=== PATIENT | female | born 1995 | race Two or more races ===

== ENCOUNTER 2024-09-05 02:59 | Inpatient (IN) | payer OTHER ==
[~2024-09-05] VITALS: Ht 170.2 cm; Wt 59.0 kg
[2024-09-05] MEDS ORDERED: INDOMETHACIN 50 MG CAPSULE PO STA (03:05)
[2024-09-05] MEDS ORDERED: RINGERS SOLUTION,LACTATED 1,000 ML IV SCH (03:15)
[2024-09-05 03:30] VITALS: BP 113/73
[2024-09-05] MEDS ORDERED: TERBUTALINE SULFATE 1 MG/ML AMPUL SUBCUTANEO SCH (04:00)
[2024-09-05] MEDS ORDERED: PROMETHAZINE HCL 50 MG/ML AMPUL IM STA (04:06)
[2024-09-05 04:33] LABS: BASO % 0.2 % (0.1-1.2); EOS # 0.00 (0.04-0.54); EOS % 0.0 % (0.7-7.0); LYMPH # 0.49 (1.18-3.74); LYMPH % 2.8 % (19.3-53.1); MEAN PLATELET VOLUME 10.50 fl (9.4-12.4); MONO # 1.04 (0.24-0.82); MONO % 6.0 % (4.7-12.5); NEUT # 15.66 (1.56-6.13); NEUT % 90.3 % (34.0-71.1); RED CELL DISTRIBUTION WIDTH 13.6 % (11.6-14.4)
[2024-09-05 04:42] LABS: URINE APPEARANCE Clear; URINE BILIRRUBIN Small (NEGATIVE); URINE BLOOD Negative; URINE COLOR Dark Yellow; URINE KETONE 15 (NEGATIVE); URINE LEUKOCYTE Trace; URINE NITRATE Negative; URINE PROTEIN Trace (NEGATIVE); URINE UROBILINOGEN 1.0 E.U./dl
[2024-09-05 04:46] LABS: URINE BACTERIA 21.5 uL (0.0-1933); URINE EPITHELIAL CELLS 7.6 uL (0.0-38.8); URINE WBC 3.8 uL (0.0-23.2)
[2024-09-05 04:48] LABS: URINE CAST 0.00 uL (0.0-1.40); URINE GLUCOSE >=1000 MG/DL (NEGATIVE); URINE RBC 0.2 uL (0.0-20.8)
[2024-09-05 04:52] LABS: INR 0.99
[2024-09-05 04:56] LABS: ALT/SGPT 92.0 U/L (12-78); AST/SGOT 32.0 U/L (15-37); BILIRUBIN TOTAL 0.27 mg/dL (0.3-1.2); BUN CREA RATIO 15.0 (7.0-25.0); CREATININE SERUM 0.6 mg/dL (0.55-1.02); GFR 120.84; GLOBULINA 3.4 G/DL (2.4-3.5); GLUCOSE FASTING 141.0 mg/dL (65-100); OSMOLALITY SERUM 277.0 MOSM/KG (275-295)
[2024-09-05] MEDS ORDERED: NIFEDIPINE 30 MG TAB.SA.OSM PO SCH (05:00)
[2024-09-05] MEDS ORDERED: INDOMETHACIN 50 MG CAPSULE PO PRN ×2 (05:00)
[2024-09-05] MEDS ORDERED: CEFAZOLIN SODIUM 1,000 MG VIAL IV STA (05:20)
[2024-09-05] MEDS ORDERED: PRENATA CHEWAB1 EACH PO (05:24)
[2024-09-05] MEDS ORDERED: FOLIC ACID0.8 M1 PO (05:26)
[2024-09-05] MEDS ORDERED: VIT C-ECHINACE1 EACH PO (05:26)
[2024-09-05] MEDS ORDERED: CHILDREN'S ASPI81 MG PO (05:26)
[2024-09-05] MEDS ORDERED: LOVENOX40 MG/0.4 (05:29)
[2024-09-05] MEDS ORDERED: TERBUTALINE SU2.5 MG PO (05:30)
[2024-09-05] MEDS ORDERED: NIFEDIPINE20 MG PO (05:31)
[2024-09-05] MEDS ORDERED: PROMETHAZINE HCL 50 MG/ML AMPUL IM SCH ×2 (06:00→08:00)
[2024-09-05 06:13] VITALS: BP 115/73; O2SAT 99
[2024-09-05 07:30] LABS: COVID-19 AG NEGATIVE (NEGATIVE)
[2024-09-05] MEDS ORDERED: PROMETHAZINE HCL 50 MG/ML AMPUL IV SCH (08:00)
[2024-09-05] MEDS ORDERED: PROMETHAZINE HCL 50 MG/ML AMPUL IM ONE (11:56)
[2024-09-05] MEDS ORDERED: ENOXAPARIN SODIUM 40 MG/0.4 ML SYRINGE SUBCUTANEO SCH (12:00)
[2024-09-05] MEDS ORDERED: CEFAZOLIN SODIUM 1,000 MG VIAL IV SCH (12:00)
[2024-09-05] MEDS ORDERED: PNV,CALCIUM 72/IRON/FOLIC ACID 1 TAB TABLET PO ONE (12:19)
[2024-09-05] MEDS ORDERED: ENOXAPARIN SODIUM 40 MG/0.4 ML SYRINGE SUBCUTANEO ONE (12:20)
[2024-09-05 12:25] VITALS: BP 94/56
[2024-09-05] MEDS ORDERED: PNV,CALCIUM 72/IRON/FOLIC ACID 1 TAB TABLET PO NR (12:30)
[2024-09-05 15:08] VITALS: BP 90/55
[2024-09-05 19:23] VITALS: BP 102/66
[2024-09-05] MEDS ORDERED: BETAMETHASONE ACETATE,SOD PHOS 30 MG/5 ML ML IM ONE (20:00)
[2024-09-05 23:20] VITALS: BP 100/66
[2024-09-06 03:26] VITALS: BP 89/53
[2024-09-06 06:17] LABS: BASO % 0.1 % (0.1-1.2); EOS # 0.00 (0.04-0.54); EOS % 0.0 % (0.7-7.0); LYMPH # 0.62 (1.18-3.74); LYMPH % 7.5 % (19.3-53.1); MEAN PLATELET VOLUME 10.20 fl (9.4-12.4); MONO # 0.09 (0.24-0.82); MONO % 1.1 % (4.7-12.5); NEUT # 7.52 (1.56-6.13); NEUT % 90.9 % (34.0-71.1); RED CELL DISTRIBUTION WIDTH 13.8 % (11.6-14.4)
[2024-09-06 06:22] VITALS: BP 102/63; O2SAT 100
[2024-09-06 07:01] LABS: ALT/SGPT 99.0 U/L (12-78); AST/SGOT 42.0 U/L (15-37); BILIRUBIN TOTAL 0.22 mg/dL (0.3-1.2); BUN CREA RATIO 20.0 (7.0-25.0); CREATININE SERUM 0.4 mg/dL (0.55-1.02); GFR 192.94; GLOBULINA 3.0 G/DL (2.4-3.5); GLUCOSE FASTING 124.0 mg/dL (65-100); OSMOLALITY SERUM 277.0 MOSM/KG (275-295)
[2024-09-06] MEDS ORDERED: BETAMETHASONE ACETATE,SOD PHOS 30 MG/5 ML ML IM ONE (08:10)
[2024-09-06] MEDS ORDERED: PNV,CALCIUM 72/IRON/FOLIC ACID 1 TAB TABLET PO SCH (09:00)
[2024-09-06 13:25] VITALS: BP 94/52
[2024-09-06] MEDS ORDERED: INDOMETHACIN 50 MG CAPSULE PO SCH (15:00)
[2024-09-06 15:17] VITALS: BP 110/67
== END 2024-09-06 15:34 | disposition home or self-care (01) | DRG 833 ==
LOC: LDR 02:59
PROVIDERS: ADMIT Specialist; ATTEND Specialist
PROC: 4A1HXCZ Monitoring of Products of Conception, Cardiac Rate, External Approach (ICD-10-PCS; principal; 2024-09-05)
PROC: BY4CZZZ Ultrasonography of Second Trimester, Single Fetus (ICD-10-PCS; 2024-09-05)
PROC: BU4CZZZ Ultrasonography of Uterus and Ovaries (ICD-10-PCS; 2024-09-05)
DX: O60.02 Preterm labor without delivery, second trimester (principal); Z3A.24 24 weeks gestation of pregnancy